=== PATIENT | female | born 1960 | race Caucasian/White ===

== ENCOUNTER 2017-11-06 21:33 | Emergency (ER) | payer SELFPAY ==
[~2017-11-06] VITALS: Ht 162.6 cm; Wt 83.1 kg
[2017-11-06 21:38] VITALS: Ht 162.6 cm; Wt 83.1 kg
[2017-11-06 23:07] VITALS: BP 143/99
== END 2017-11-06 23:07 | disposition home or self-care (01) ==
LOC: ED 21:33
DX: F32.9 Major depressive disorder, single episode, unspecified (principal); F41.9 Anxiety disorder, unspecified; I10 Essential (primary) hypertension

== ENCOUNTER 2017-11-07 12:47 | Emergency (ER) | payer OTHER ==
[~2017-11-07] VITALS: Ht 162.6 cm; Wt 84.4 kg
[2017-11-07 13:03] VITALS: Ht 162.6 cm; Wt 84.4 kg
[2017-11-07 14:10] LABS: microscopic required? YES; urine erythrocyte 2+ (NEGATIVE)
[2017-11-07 16:40] VITALS: BP 146/104
== END 2017-11-07 16:40 | disposition home or self-care (01) ==
LOC: ED 12:47
PROVIDERS: Emergency Medicine
DX: M79.1 Myalgia (principal); I10 Essential (primary) hypertension; E03.9 Hypothyroidism, unspecified; E66.9 Obesity, unspecified; F41.9 Anxiety disorder, unspecified
CPT/HCPCS: 82962; 87804